=== PATIENT | male | born 1995 | race Caucasian/White ===

== ENCOUNTER 2023-01-02 15:10 | Emergency (ER) | payer MEDICAID, SELFPAY ==
[2023-01-02 15:14] VITALS: BP 133/79; PULSE 85; RESP 18; TEMP 37; O2SAT 99
--- NOTE | 2023-01-02 15:15 | DI.CT_ITS ---
Exam(s) CT ABDOMEN PELVIS W EXAM: CT ABDOMEN PELVIS W CLINICAL HISTORY: left upper abdominal pain. TECHNIQUE: Imaging Protocol: Axial computed tomography images with coronal and sagittal reformatted images were created and reviewed CONTRAST MATERIAL: Intravenous: Omnipaque-350 100cc Oral: None COMPARISON: No exams were available for comparison FINDINGS: VISUALIZED LUNG BASES: No nodules nor pleural effusions evident. ABDOMEN: There is no ascites. LIVER: There are no focal hepatic lesions evident. No dilated intrahepatic ducts. GALLBLADDER/BILIARY: No obvious gallbladder pathology. CBD is not dilated. PANCREAS: No evidence of pancreatic mass nor dilatation of the pancreatic duct. SPLEEN: Spleen is not enlarged. No obvious intrasplenic lesions. Splenic and portal veins are paten t. ADRENALS: There are no significant adrenal masses. KIDNEYS:No cysts evident. No solid renal masses. No calculi nor hydronephrosis.. ABDOMINAL AORTA: Abdominal aorta is not enlarged. LYMPH NODES:There is no retroperitoneal nor paraaortic adenopathy. ABDOMINAL WALL: No evidence of significant anterior abdominal wall nor inguinal hernia. GI: No evidence of bowel obstruction. No appendicitis. However, there is abnormal streaking anterio r to the descending-left colon which does not appear to be associated with obvious diverticuli. Neve rtheless implies abnormal inflammatory process at this level. There is no formed abscess. No free a ir. PELVIS: GI: No evidence of appendicitis.No evidence of sigmoid diverticulitis. LYMPH NODES: There is no intrapelvic nor inguinal adenopathy. REPRODUCTIVE: Age-appropriate URINARY BLADDER: Urinary bladder wall is diffusely thickened although this may be exaggerated by unde r distension. OSSEOUS: No fractures and no significant osseous lesions. IMPRESSION: 1. Main finding here is on the left side where there is inflammatory streaking adjacent to the anteri or aspect of the descending-left colon distal to the splenic flexure. This abnormal mesenteric findi ng measures approximately 3 by 2 cm. No obvious diverticuli. May represent epiploic appendagitis. Close follow-up recommended. 2. No evidence of acute appendicitis. Called by myself to ER physician RADIATION DOSE DELIVERED: 1,118.33mGy.cm Total DLP DATA REPOSITORY: All CT scans at this facility are submitted to the National Radiology Data Registry (NRDR) Dose Index Registry (DIR) with the [employer] ([employer]). RADIATION OPTIMIZATION: All CT scans at this facility use at least one of these dose optimization te chniques: automated exposure control; mA and/or kV adjustment per patient size (includes targeted exa ms where dose is matched to clinical indication); or iterative reconstruction.
--- NOTE | 2023-01-02 15:26 | ED.GENADUL_ITS ---
Discharge Plan Disposition Patient Disposition: Home Condition: Stable Discharge Details Clinical Impression: Abdominal pain, Epiploic appendagitis Primary Care Provider: None,None ED Provider: Hasmukh Acosta Home Meds and New Rx's Prescriptions: New amoxicillin-pot clavulanate 875-125 mg tablet 1 tab PO BID 5 Days Qty: 10 0RF Continued diazepam [Valium] 10 mg tablet 10 mg PO ONCE PRN (Reason: premedication) Qty: 1 0RF Patient Comments: not taking Rx Instructions: Take 1 hour prior to procedure. 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 He can't think of anything that could have caused it, no recent trauma or falls, no recent uri illnesses. No fevers, no vomiting, no chest pain or dyspnea, no urinary symptoms or testicle pain or swelling. He is tender on exam in the left upper abdomen even with light palpation, no tenderness elsewhere on abdominal exam. Unclear etiology for his pain, given he's had the pain for 4 days and degree of tenderness on exam will proceed with cbc, cmp, lipase and ct abd/pelvis to evaluate for possible splenic injury vs infarct. labs unremarkable, pt feels better, CT shows 3x2cm fluid collection at the area of epiploig appendage on the descending left colon, zosyn ordered will consult general surgery Consulted Dr. Hidalgo who reviewed case and images and feels this is epiploic appendigitis and recommends augmentin for 5 days and they will f/u with him as an outpatient. Pts pain significantly improved and he is comfortable with d/c, return precautions given Differential Diagnosis Differential Diagnosis: splenic infarct, gastritis, pancreatitis Imaging Data Radiologic Study: Attestation: I personally reviewed and interpreted this imaging study as follows: Imaging: CT Scan Radiologist's impression: IMPRESSION: 1. Main finding here is on the left side where there is inflammatory streaking adjacent to the anterior aspect of the descending-left colon distal to the splenic flexure.? This abnormal mesenteric finding measures approximately 3 by 2 cm.? No obvious diverticuli.? May represent epiploic appendagitis.? Close follow-up recommended. 2. No evidence of acute appendicitis. Lab Data Lab results reviewed: Yes I reviewed the patient's lab results. HPI General Mode of arrival: ambulatory . Date/Time Provider Initiated Documentation: 01/02/23 15:13 . Limitations to Documentation: no limitations . Information obtained by: patient . History of Present Illness 27 year old M presents to the emergency department with the chief complaint of left sided abdominal pain, described as moderate, Patient started experiencing this day(s) (4) and it has been constant. No relieving factors improve symptom(s), No exacerbating factors reported . Patient notes no other symptoms.. Patient did receive the following treatments prior to arrival, none Related Data Home Medications Medication Instructions Recorded Confirmed diazepam 10 mg tablet (Valium) 10 mg PO ONCE PRN premedication #1 12/22/22 01/02/23 tab amoxicillin 875 mg-potassium 1 tab PO BID 5 days #10 tabs 01/02/23 clavulanate 125 mg tablet Previous Rx's Medication Instructions Recorded diazepam 10 mg tablet (Valium) 10 mg PO ONCE PRN premedication #1 12/22/22 tab amoxicillin 875 mg-potassium 1 tab PO BID 5 days #10 tabs 01/02/23 clavulanate 125 mg tablet Allergies Allergy/AdvReac Type Severity Reaction Status Date / Time No Known Allergies Allergy Verified 01/02/23 15:17 General Stated Complaint: Abd Prob SHANI: 3 Review of Systems All systems reviewed & are unremarkable except as noted in HPI and below Constitutional Constitutional: Denies chills, Denies fever(s) and Denies weakness Cardiovascular Cardiovascular: Denies chest pain and Denies dyspnea Respiratory Respiratory: Denies cough and Denies dyspnea Gastrointestinal Gastrointestinal: Denies vomiting Genitourinary Genitourinary: Denies dysuria Integumentary/Breasts Skin/Breast: Denies rash Neurologic Neurologic: Denies weakness PFSH All Active Problems (Updated 01/02/23 @ 17:39 by Hasmukh Acosta MD) Abdominal pain (Acute) Epiploic appendagitis (Acute) Social History (Reviewed 12/22/22 @ 15:57 by EDI Gallegos Smoking/Tobacco Use Status: Current-Occasional Tobacco Type: smokeless tobacco Smoking risk assessment performed?: Yes Alcohol Intake: current Alcohol Intake frequency: holidays/special occasions only Drug use: Never Substance use type: does not use Do you feel safe at home: Yes Do you feel safe in your relationship?: Yes Exam Const General: no acute distress Orientation: alert HENMT Head: normal to inspection Ears: external ears normal General nose exam: external nose normal Mouth: moist mucous membranes Eyes General: appearance normal, both eyes and all related structures Neck Neck: normal visual inspection Resp Effort & Inspection: normal respiratory effort and able to speak in complete sentences Cardio Rate: regular rate GI Palpation: soft and tender Skin General skin exam: no rashes or lesions noted Neuro General: patient alert and patient oriented x3 Extrem General: normal to inspection Psych Mental Status: mental status grossly normal Course Vital Signs Vital signs: Vital Signs Temperature 37 C 01/02/23 15:14 Pulse 85 01/02/23 15:14 Respiratory Rate 18 01/02/23 15:14 Blood Pressure 133/79 01/02/23 15:14 Pulse Oximetry 99 01/02/23 15:14 Temperature 37 C 01/02/23 15:14 Temperature Source Tympanic 01/02/23 15:14 Pulse 85 01/02/23 15:14 Respiratory Rate 18 01/02/23 15:14 Respiratory Effort Normal 01/02/23 15:17 Blood Pressure 133/79 01/02/23 15:14 Blood Pressure Position Sitting 01/02/23 15:14 Pulse Oximetry 99 01/02/23 15:14 Oxygen Delivery Method Room Air 01/02/23 15:14 Oxygen Flow Rate 0 01/02/23 15:14 Pain Level 4 01/02/23 15:14
[2023-01-02 15:37] LABS: Abs Immature Grans 0.02 10^3/uL (0.0-0.06); Absolute Basophil Count 0.03 10^3/uL (0.0-0.2); Absolute Eosinophil Count 0.09 10^3/uL (0.0-0.7); Absolute Lymphocyte Count 1.95 10^3/uL (1.2-3.4); Absolute Monocyte Count 0.56 10^3/uL (0.1-0.8); Absolute Neutrophil Count 5.14 10^3/uL (1.2-6.7); Basophils % 0.4; Eosinophils % 1.2; HCT 47.2 % (40.0-50.0); HGB 16.3 g/dL (13.5-17.5); Immature Grans % 0.3; MCH 30.2 pg (27.0-33.0); MCHC 34.5 % (32.0-36.0); MCV 87 fL (80-95); MPV 9.1 fL (8.0-11.0); Monocytes % 7.2; Neutrophils % 65.9; Platelet Count 352 10^3/uL (130-400); RDW-SD 38.6 fL; WBC 7.79 10^3/uL (4.4-10.8)
[2023-01-02] MEDS: Ketorolac 15 MG/ML VIAL IVP (15:38)
[2023-01-02] MEDS: Normal Saline 1,000 ML 1000 ML IV (15:38)
[2023-01-02 15:50] LABS: Bilirubin Negative (Negative); Blood Negative (Negative); Clarity Clear (Clear); Glucose Negative (Negative); Ketones Negative (Negative); Leukocyte Esterase Negative (Negative); Nitrite Negative (Negative); Specific Gravity 1.015 (1.005-1.025); Urobilinogen 0.2 mg/dL (Up to 0.2)
[2023-01-02 15:52] LABS: ALT 54 U/L (16-63); AST 26 U/L (15-37); Albumin 4.3 g/dL (3.4-5.0); Alkaline Phosphatase 103 U/L (46-116); Anion Gap 10.2 mmol/L (3-11); BUN 10 mg/dL (7-18); Bilirubin, Total 0.7 mg/dL (0.2-1.0); CO2 26.8 mmol/L (21.0-32.0); CREATININE 1.2 mg/dL (0.70-1.30); Chloride 102 mmol/L (98-107); Estimated GFR 86.07 (mL/min/1.73m2); Glucose 89 mg/dL (74-106); Lipase 25 U/L (16-77); Potassium 3.9 mmol/L (3.5-5.1); Sodium 139 mmol/L (136-145); Total Protein 8.3 g/dL (6.4-8.2)
[2023-01-02] MEDS: Omnipaque 350 MG/ML 500 ML BTL-Imaging package IJ (15:58)
[2023-01-02] MEDS: Normal Saline - Diluent 50 ML VIAL IJ (15:58)
[2023-01-02] MEDS: Normal Saline Flush 10 ML SYR IVP (15:59)
[2023-01-02] MEDS: PIPERACILLIN/TAZO 4.5 GM in Normal Saline 100 ML IVPB (16:51)
== END 2023-01-02 18:07 | disposition home or self-care (01) ==
PROVIDERS: Emergency Provider Emergency Medicine
DX: R10.12 Left upper quadrant pain (principal); K63.89 Other specified diseases of intestine; F17.290 Nicotine dependence, other tobacco product, uncomplicated
CPT/HCPCS: 80053; 83690; 96365; 96367; 99285; 74177; 81003; 83735; 85025; 99284; J1885; J2543

== ENCOUNTER 2024-10-25 22:28 | Outpatient (REF) | payer SELFPAY ==
[2024-10-28 10:35] LABS: Hepatitis C Ab w Rflx HCV PCR Negative (Negative)
[2024-10-28 10:47] LABS: HIV-1/2 Ag & Ab Screen Negative (Negative)
[2024-10-28 11:00] LABS: HBs Antibody, Quant 128.2 mIU/mL (See Note); Hep B Surface Ab Positive (See Note); Hepatitis B Core Antibody Negative (Negative); Hepatitis B Surface Antigen Negative (Negative)
[2024-10-28 11:09] LABS: Syphilis Serology (RPR) Negative (Negative)
[2024-10-28 12:28] LABS: Chlamydia Result Negative (Negative); GC Result Negative (Negative)
== END 2024-10-25 22:29 | disposition home or self-care (01) ==
LOC: LBN 22:28
PROVIDERS: PCP Nurse Practitioner Family; Visit Provider Nurse Practitioner Family
DX: N45.1 Epididymitis (principal)
CPT/HCPCS: 86704; 86706; 86803; 87340; 87389; 87491; 87591; 86592

== ENCOUNTER 2024-12-13 00:29 | Outpatient (CLI) | payer BC, SELFPAY ==
--- NOTE | 2024-12-13 14:36 | DI.RAD_ITS ---
Exam(s) XR SHOULDER LT COMPLETE 2+V EXAM: XR SHOULDER LT COMPLETE 2+V CLINICAL HISTORY: pain and popping when lifting overhead,lt shoulder pain,[id number]. TECHNIQUE: 2D digital imaging was performed of the left shoulder. Five images were obtained. AP, Grashey, Y-view and axillary views were obtained. COMPARISON: No exams were available for comparison FINDINGS: BONES: No acute fracture is present. No bony destructive lesion is seen. JOINTS: No dislocation present. SOFT TISSUE: Normal. IMPRESSION: Unremarkable radiographs of the left shoulder. DATA REPOSITORY: RADIATION DOSE DELIVERED:
== END 2024-12-13 00:49 ==
LOC: DI 00:29
PROVIDERS: PCP Nurse Practitioner Family; Visit Provider Nurse Practitioner Family
DX: M25.512 Pain in left shoulder (principal)
CPT/HCPCS: 73030